=== PATIENT | male | born 1960 | race Caucasian/White ===

== ENCOUNTER → 2017-02-08 | Outpatient (CLI) | payer MEDICARE ==
[~2017-02-08] MED LIST: ASPI-84 PO; ATOR10TA PO; BENZ100C18 PO; CEFD300C3 PO; CLOP75TA PO; DIAZ5TAB49 PO; DIPH25CA79 PO; DOCU-143 PO; ENLP5T PO; FENO145T2 PO; FENO145T20 PO; FISH1CAP15 PO; HYDR-756 PO; LOVA20TA2 PO; MEDROL PO; METH10TA3 PO; MULT-35 PO; OXYC-272 PO; OXYC30TA76 PO; Omnicef; RNT150T PO; WARF7.5T PO; WARF7.5T49 PO; WRF5T PO
== END ==
LOC: PREOP 05:40
PROVIDERS: ATTEND Internal Medicine
DX: Z12.11 Encounter for screening for malignant neoplasm of colon; Z01.818 Encounter for other preprocedural examination

== ENCOUNTER → 2019-02-27 | Outpatient (CLI) | payer MEDICARE ==
[~2019-02-27] MED LIST changes: -FENO145T20 PO; +FENO145T37 PO; +HYDR-4227 PO; -HYDR-756 PO
[2019-02-27 15:43] LABS: ABSOLUTE RETIC # 55 10e9/L (24-90); BASOPHILS % (AUTO) 0 % (0-10); EOSINOPHILS # (AUTO) 0.1 10^3/uL (0.0-0.3); EOSINOPHILS % (AUTO) 1 % (0-10); HEMATOCRIT 46 % (40-54); HEMOGLOBIN 14.9 G/DL (13.3-17.7); LYMPHOCYTES # (AUTO) 2.8 X 10^3 (1.0-4.0); LYMPHOCYTES % (AUTO) 31 % (12-44); MEAN CORPUSCULAR HEMOGLOBIN 30 PG (25-34); MEAN CORPUSCULAR HGB CONC 33 G/DL (32-36); MEAN CORPUSCULAR VOLUME 91 FL (80-99); MEAN PLATELET VOLUME 10.3 FL (7.4-10.4); MONOCYTES # (AUTO) 0.6 X 10^3 (0.0-1.0); MONOCYTES % (AUTO) 6 % (0-12); NEUTROPHILS # (AUTO) 5.6 X 10^3 (1.8-7.8); NEUTROPHILS % (AUTO) 62 % (42-75); PLATELET COUNT 191 10^3/uL (130-400); RED CELL DISTRIBUTION WIDTH 14.5 % (10.0-14.5); RETICULOCYTE % 1.09 % (0.50-2.40); WHITE BLOOD COUNT 9.2 10^3/uL (4.3-11.0)
[2019-02-27 16:33] LABS: BAND NEUTROPHILS 1 %; EOSINOPHILS % (MANUAL) 3 %; LYMPHOCYTES % (MANUAL) 30 %; MONOCYTES % (MANUAL) 6 %; NEUTROPHILS % (MANUAL) 60 %; RBC MORPH NORMAL
== END ==
LOC: LAB 15:28
PROVIDERS: ATTEND Internal Medicine
DX: D72.829 Elevated white blood cell count, unspecified (principal)
CPT/HCPCS: 36415; 85007; 85027; 85045

== ENCOUNTER → 2020-04-15 | Outpatient (CLI) | payer MEDICARE ==
[~2020-04-15] MED LIST changes: +FENO145T26 PO; -FENO145T37 PO; +WARF7.5T3 PO; -WARF7.5T49 PO
[2020-04-15 09:35] LABS: ABSOLUTE RETIC # 52 10e9/uL (24-90); BASOPHILS % (AUTO) 0 % (0-10); EOSINOPHILS # (AUTO) 0.2 10^3/uL (0.0-0.3); EOSINOPHILS % (AUTO) 3 % (0-10); HEMATOCRIT 48 % (40-54); HEMOGLOBIN 15.1 g/dL (13.3-17.7); LYMPHOCYTES # (AUTO) 3.9 10^3/uL (1.0-4.0); LYMPHOCYTES % (AUTO) 43 % (12-44); MEAN CORPUSCULAR HEMOGLOBIN 29 pg (25-34); MEAN CORPUSCULAR HGB CONC 32 g/dL (32-36); MEAN CORPUSCULAR VOLUME 92 fL (80-99); MEAN PLATELET VOLUME 10.6 fL (9.0-12.2); MONOCYTES # (AUTO) 0.6 10^3/uL (0.0-1.0); MONOCYTES % (AUTO) 6 % (0-12); NEUTROPHILS # (AUTO) 4.2 10^3/uL (1.8-7.8); NEUTROPHILS % (AUTO) 47 % (42-75); PLATELET COUNT 206 10^3/uL (130-400); WHITE BLOOD COUNT 8.9 10^3/uL (4.3-11.0)
[2020-04-15 10:21] LABS: BAND NEUTROPHILS 1 %; EOSINOPHILS % (MANUAL) 3 %; LYMPHOCYTES % (MANUAL) 45 %; MONOCYTES % (MANUAL) 5 %; NEUTROPHILS % (MANUAL) 44 %; RBC MORPH NORMAL; REACTIVE LYMPHOCYTES 2 %
== END ==
LOC: LAB 09:04
PROVIDERS: ATTEND Internal Medicine
DX: R79.9 Abnormal finding of blood chemistry, unspecified (principal)
CPT/HCPCS: 36415; 85007; 85027; 85045; 85055

== ENCOUNTER 2020-07-05 21:02 | Emergency (ER) | payer MEDICARE ==
[~2020-07-05] VITALS: Ht 182.9 cm; Wt 118.2 kg
[2020-07-05 21:40] VITALS: BP 149/58
[2020-07-05] MEDS ORDERED: ACETAMINOPHEN 500 MG TAB (TYLENOL) PO ONE (22:00)
[2020-07-05] MEDS ORDERED: IBUPROFEN 800 MG (MOTRIN) TAB PO ONE (22:00)
[2020-07-05 22:12] LABS: BASOPHILS % (AUTO) 0 % (0-10); EOSINOPHILS % (AUTO) 0 % (0-10); HEMATOCRIT 46 % (40-54); HEMOGLOBIN 15.3 g/dL (13.3-17.7); LYMPHOCYTES # (AUTO) 1.9 10^3/uL (1.0-4.0); LYMPHOCYTES % (AUTO) 10 % (12-44); MEAN CORPUSCULAR HEMOGLOBIN 29 pg (25-34); MEAN CORPUSCULAR HGB CONC 33 g/dL (32-36); MEAN CORPUSCULAR VOLUME 89 fL (80-99); MEAN PLATELET VOLUME 10.7 fL (9.0-12.2); MONOCYTES # (AUTO) 1.3 10^3/uL (0.0-1.0); MONOCYTES % (AUTO) 7 % (0-12); NEUTROPHILS # (AUTO) 16.3 10^3/uL (1.8-7.8); NEUTROPHILS % (AUTO) 83 % (42-75); PLATELET COUNT 170 10^3/uL (130-400); WHITE BLOOD COUNT 19.7 10^3/uL (4.3-11.0)
[2020-07-05 22:32] LABS: ALBUMIN 3.7 GM/DL (3.2-4.5); BILIRUBIN,TOTAL 0.8 MG/DL (0.1-1.0); CALCIUM 8.9 MG/DL (8.5-10.1); CREATININE SERUM 1.27 MG/DL (0.60-1.30); POTASSIUM 4.1 MMOL/L (3.6-5.0); TOTAL PROTEIN 7.9 GM/DL (6.4-8.2)
--- NOTE | 2020-07-05 22:34 | ED General ---
General Chief Complaint: Fever-Adult/Adol Stated Complaint: HEADACHE/CHILLS/FEVER/URINE INCONTINENCE Source of Information: Patient (VERY LIMITED AND VERY DIFFICULT HISTORIAN--PT IS BELLIGERENT AND CURSING AND GENERALLY UNCOOPERATIVE FROM ARRIVAL. UNABLE TO OBTAIN ANY PAST MEDICAL HISTORY FROM PT) History of Present Illness Date Seen by Provider: Jul 05, 2020 Time Seen by Provider: 21:40 Initial Comments PT ARRIVES VIA POV FROM HOME--WITH PACK OF CIGARETTES AND A WAREHOUSE COORDINATOR C/O SUBJECTIVE FEVER AND CHILLS C/O URINARY INCONTINENCE SYMPTOMS BEGAN TODAY ALSO C/O "DIAPER RASH" ON BUTTOCKS/GENITAL AREA--IS UNCLEAR HOW LONG THAT HAS BEEN THERE PT WANTING TO LEAVE SOON HE ARRIVES--STATING "THIS IS ALL BULLSHIT--I'M LEAVING" UNABLE TO OBTAIN ANY OTHER INFORMATION FROM PT, HE IS INCREASINGLY BELLIGERENT AND CURSING AND BEING GENERALLY UNCOOPERATIVE WITH ASSESMENT AND INTERVENTIONS REFUSES TO GET UNDRESSED FOR ME TO EXAMINE HIM AND HIS C/O "DIAPER RASH" HE REFUSED TO ATTEMPT TO GIVE URINE SPECIMEN--EXPLAINED THE IMPORTANCE OF TEST TO PT. PT STATES HE NEEDS TO TAKE HIS MEDICATION, BUT REFUSES TO ALLOW MYSELF JUNIOR NET DEVELOPER TO EVEN LOOK AT HIS PILLS, NONE OF WHICH ARE IN A BOTTLE OR LABELED IN ANY WAY. PT DOES NOT KNOW WHAT HIS MEDICATIONS ARE, OR WHY HE TAKES THEM. PT'S BEHAVIOR QUICKLY ESCALATED, AND PT SIGNED OUT AMA REPEATED ATTEMPTS BY MYSELF AND RN TO ENCOURAGE PT TO STAY FOR FURTHER TESTS AND EVALUATION PT ADVISED THAT HE COULD POSSIBLY HAVE COVID-19 AND NEEDED TO BE QUARANTINED FOR 2 WEEKS PCP: DR. MARVIN Allergies and Home Medications Allergies Coded Allergies: chlorpheniramine (Unverified Allergy, Unknown, 12/14/14) pseudoephedrine (Unverified Allergy, Unknown, 12/14/14) Home Medications Aspirin 81 Mg Tablet., 81 MG PO DAILY, (Reported) Atorvastatin Calcium 10 Mg Tablet, 10 MG PO DAILY Prescribed by: WOLFGANG BARKER on 07/15/15 0953 Diazepam 5 Mg Tablet, 5 MG PO TID, (Reported) Diphenhydramine HCl 25 Mg Capsule, 25 MG PO BID, (Reported) Enalapril Maleate 5 Mg Tab, 5 MG PO DAILY, (Reported) Fenofibrate Nanocrystallized 145 Mg Tablet, 145 MG PO DAILY, (Reported) Fish Oil/Dha/Epa 1 Each Capsule, 1,200 MG PO TID, (Reported) Multivitamin 1 Each Tablet, 1 EACH PO DAILY, (Reported) Oxycodone Hcl 30 Mg Tab.sr.12h, 30 MG PO BID, (Reported) Oxycodone Hcl/Acetaminophen 1 Tab Tablet, 1 TAB PO QID, (Reported) Ranitidine Hcl 150 Mg Tablet, 150 MG PO BID, (Reported) Warfarin Sod 5 Mg Tab, 5 MG PO , (Reported) MONDAY,MONDAY Warfarin Sodium 7.5 Mg Tablet, 7.5 MG PO MOWETHRFRISUN, (Reported) Monday, Monday, , Monday,MONDAY Patient Home Medication List Home Medication List Reviewed: Yes Review of Systems Review of Systems Constitutional: chills, fever, other (VERY LIMITED) Genitourinary: see HPI Past Raphtrc-Hspfea-Fsakjy Hx Patient Social History Smoking Status: Current Everyday Smoker (2 PPD) Type Used: Cigarettes Recent Hopitalizations: No Immunizations Up To Date Tetanus Booster (TDap): Unknown Seasonal Allergies Seasonal Allergies: No Past Medical History Currently Using CPAP: No Currently Using BIPAP: No Neurological: Yes (EXPRESSIVE APHASIA) Stroke Reproductive Disorders: No Adverse Reaction/Blood Tranf: No Family Medical History Cardiovascular disease G8 BROTHER G8 BROTHER G8 BROTHER FH: cancer 19 FATHER 19 MOTHER (UTERINE) FH: lung cancer GRANDFATHER No Pertinent Family Hx Physical Exam Vital Signs Vital Signs - First Documented 07/05/20 21:40 Temp 38.9 Pulse 129 Resp 24 B/P (MAP) 149/58 (88) Pulse Ox 96 O2 Delivery Room Air O2 Flow Rate 2.00 Capillary Refill : Height, Weight, BMI Height: 6'2.00" Weight: 251lbs. 2.0oz. [id number]; 32.2 BMI Method:Stated General Appearance: No Apparent Distress, WD/WN, Anxious, Other (VERY BELLIGERENT, CURSING, CONSTANT MOVEMENTS, PT REEKS OF CIGARETTS--DESPITE MY WEARING N95 MASK + SUGICAL MASK) Respiratory: Normal Breath Sounds, No Accessory Muscle Use Cardiovascular: No Murmur, Tachycardia Neurologic/Psychiatric: Alert, No Motor/Sensory Deficits, Other (SOME EXPRESSIVE APHASIA BUT SPEECHI ITSELF IS CLEAR. BEHAVIOR NOTED ABOVE) Skin: Other (VERY WARM) Focused Exam Lactate Level 07/05/20 21:50: Lactic Acid Level 1.60 Lactic Acid Level Laboratory Tests Test 07/05/20 21:50 Lactic Acid Level 1.60 MMOL/L (0.50-2.00) Progress/Results/Core Measures Suspected Sepsis SIRS Temperature: Pulse: Respiratory Rate: Laboratory Tests 07/05/20 21:50: White Blood Count 19.7H Blood Pressure / Mean: 07/05/20 21:50: Lactic Acid Level 1.60 Laboratory Tests 07/05/20 21:50: Creatinine 1.27, INR Comment 2.1H, Platelet Count 170, Total Bilirubin 0.8 Results/Orders Lab Results Laboratory Tests Test 07/05/20 21:50 07/05/20 22:15 Range/Units White Blood Count 19.7 H 4.3-11.0 10^3/uL Red Blood Count 5.20 4.30-5.52 10^6/uL Hemoglobin 15.3 13.3-17.7 g/dL Hematocrit 46 40-54 % Mean Corpuscular Volume 89 80-99 fL Mean Corpuscular Hemoglobin 29 25-34 pg Mean Corpuscular Hemoglobin Concent 33 32-36 g/dL Red Cell Distribution Width 13.6 10.0-14.5 % Platelet Count 170 130-400 10^3/uL Mean Platelet Volume 10.7 9.0-12.2 fL Immature Granulocyte % (Auto) 1 % Neutrophils (%) (Auto) 83 H 42-75 % Lymphocytes (%) (Auto) 10 L 12-44 % Monocytes (%) (Auto) 7 0-12 % Eosinophils (%) (Auto) 0 0-10 % Basophils (%) (Auto) 0 0-10 % Neutrophils # (Auto) 16.3 H 1.8-7.8 10^3/uL Lymphocytes # (Auto) 1.9 1.0-4.0 10^3/uL Monocytes # (Auto) 1.3 H 0.0-1.0 10^3/uL Eosinophils # (Auto) 0.0 0.0-0.3 10^3/uL Basophils # (Auto) 0.0 0.0-0.1 10^3/uL Immature Granulocyte # (Auto) 0.1 0.0-0.1 10^3/uL Neutrophils % (Manual) 76 % Lymphocytes % (Manual) 10 % Monocytes % (Manual) 8 % Band Neutrophils 6 % Blood Morphology Comment NORMAL Prothrombin Time 24.1 H 12.2-14.7 SEC INR Comment 2.1 H 0.8-1.4 Activated Partial Thromboplast Time 51 H 24-35 SEC D-Dimer 1.57 H 0.00-0.49 UG/ML Sodium Level 132 L 135-145 MMOL/L Potassium Level 4.1 3.6-5.0 MMOL/L Chloride Level 98 98-107 MMOL/L Carbon Dioxide Level 21 21-32 MMOL/L Anion Gap 13 5-14 MMOL/L Blood Urea Nitrogen 12 7-18 MG/DL Creatinine 1.27 0.60-1.30 MG/DL Estimat Glomerular Filtration Rate 57 BUN/Creatinine Ratio 9 Glucose Level 115 H 70-105 MG/DL Lactic Acid Level 1.60 0.50-2.00 MMOL/L Calcium Level 8.9 8.5-10.1 MG/DL Corrected Calcium 9.1 8.5-10.1 MG/DL Magnesium Level 1.1 *L 1.6-2.4 MG/DL Total Bilirubin 0.8 0.1-1.0 MG/DL Aspartate Amino Transf (AST/SGOT) 17 5-34 U/L Alanine Aminotransferase (ALT/SGPT) 13 0-55 U/L Alkaline Phosphatase 77 40-136 U/L Lactate Dehydrogenase 208 125-220 U/L C-Reactive Protein High Sensitivity 14.18 H 0.00-0.50 MG/DL B-Type Natriuretic Peptide 19.4 <100.0 PG/ML Total Protein 7.9 6.4-8.2 GM/DL Albumin 3.7 3.2-4.5 GM/DL Procalcitonin 1.12 H <0.10 NG/ML Coronavirus 2019 (VEENA) Negative Negative Micro Results Microbiology 07/05/20 Influenza Types A,B Antigen (GUSTAVO) - Final, Complete My Orders Orders - SARATH SANTANA DO Ed Iv/Invasive Line Start (07/05/20 21:40) Ekg Tracing (07/05/20 21:40) O2 (07/05/20 21:40) Monitor-Rhythm Ecg Trace Only (07/05/20 21:40) Cbc With Automated Diff (07/05/20 21:40) Comprehensive Metabolic Panel (07/05/20 21:40) Fibrin Degradation Products (07/05/20 21:40) Procalcitonin (Pct) (07/05/20 21:40) Hs C Reactive Protein (07/05/20 21:40) Erythrocyte Sedimentation Rate (07/05/20 21:40) LDH (07/05/20 21:40) Blood Culture (07/05/20 21:40) Influenza A And B Antigens (07/05/20 21:40) Chest 1 View, Ap/Pa Only (07/05/20 21:40) Coronavirus Sars-Cov-2 So 2018 (07/05/20 21:40) Covid 19 Inhouse Test (07/05/20 21:40) BNP (07/05/20 21:40) Lactic Acid Analyzer (07/05/20 21:40) Magnesium (07/05/20 21:40) Protime With Inr (07/05/20 21:40) Partial Thromboplastin Time (07/05/20 21:40) Acetaminophen Tablet (Tylenol Tablet) (07/05/20 22:00) Ibuprofen Tablet (Motrin Tablet) (07/05/20 22:00) Manual Differential (07/05/20 21:50) Medications Given in ED Current Medications Medications Dose Ordered Sig/Adrián Route Start Time Stop Time Status Last Admin Dose Admin Acetaminophen 1,000 mg ONCE ONCE PO 07/05/20 22:00 07/05/20 22:01 DC 07/05/20 22:06 1,000 MG Ibuprofen 800 mg ONCE ONCE PO 07/05/20 22:00 07/05/20 22:01 DC 07/05/20 22:06 800 MG Vital Signs/I&O 07/05/20 07/05/20 21:40 21:40 Temp 38.9 Pulse 129 Resp 24 B/P (MAP) 149/58 (88) Pulse Ox 96 96 O2 Delivery Room Air Nasal Cannula O2 Flow Rate 2.00 2.00 Capillary Refill : Progress Note : Progress Note PLACED IN ISOLATION ROOM PPE WORN AT ALL TIMES COVID-19 TESTING PERFORMED PT ADVISED OF NEED FOR QUARANTINE PT WITH INCREASING BELLIGERENCE, CURSING, UNCOOPERATIVENESS, AND AGITATION--REPEATS "THIS IS BULLSHIT" AND REPEATEDLY STATES "I'M JUST GONNA LEAVE--THIS IS FUCKING BULL SHIT" AND REFUSING ALL OTHER TESTS AND REFUSED ADMIT AND SIGNED OUT AMA ECG Initial ECG Impression Date: Jul 05, 2020 Initial ECG Impression Time: 22:12 Initial ECG Rate: 128 Initial ECG Rhythm: S.Tach Initial ECG Impression: Nonspecific Changes Departure Impression Primary Impression: Left against medical advice Disposition: 07 AGAINST MEDICAL ADVICE Condition: Against Medical Advice Departure-Patient Inst. Referrals: MING MARVIN MD (PCP/Family) Primary Care Physician SARATH SANTANA DO Jul 05, 2020 22:34
[2020-07-05 22:46] LABS: FIBRIN DEGRADATION PRODUCTS 1.57 UG/ML (0.00-0.49); INR 2.1 (0.8-1.4); PROTHROMBIN TIME PATIENT 24.1 SEC (12.2-14.7)
[2020-07-05 22:51] LABS: BAND NEUTROPHILS 6 %; LYMPHOCYTES % (MANUAL) 10 %; MONOCYTES % (MANUAL) 8 %; NEUTROPHILS % (MANUAL) 76 %; RBC MORPH NORMAL
[2020-07-05 22:53] LABS: MAGNESIUM 1.1 MG/DL (1.6-2.4)
--- NOTE | 2020-07-06 06:20 | Diagnostic Imaging Report ---
INDICATION: Fever, cough, and congestion. Patient is on COVID restrictions. COMPARISON STUDY: Chest from 07/15/2015. FINDINGS: Frontal view of the chest again demonstrates a hiatal hernia. Heart size is upper normal. Mild central congestion is present. There are no effusions. IMPRESSION: Heart size is upper normal with mild central congestion. There is a small hiatal hernia. Dictated by: Dictated on workstation # [id number]
[2020-07-06 15:37] LABS: ERYTHROCYTE SEDIMENTATION RATE 4 MM/HR (0-30)
== END 2020-07-05 22:20 | disposition left against medical advice (07) ==
LOC: EDUNIT# 21:02 → ER 21:05
DX: R51.9 Headache, unspecified (principal); R50.9 Fever, unspecified; R32 Unspecified urinary incontinence; L22 Diaper dermatitis; R00.0 Tachycardia, unspecified; R45.1 Restlessness and agitation; F41.9 Anxiety disorder, unspecified; F17.210 Nicotine dependence, cigarettes, uncomplicated; Z20.822 Contact with and (suspected) exposure to COVID-19; Z86.73 Personal history of transient ischemic attack (TIA), and cerebral infarction without residual deficits; Z79.01 Long term (current) use of anticoagulants; Z79.82 Long term (current) use of aspirin; Z88.8 Allergy status to other drugs, medicaments and biological substances; Z80.1 Family history of malignant neoplasm of trachea, bronchus and lung
CPT/HCPCS: 36415; 71045; 80053; 83605; 83615; 83735; 83880; 84145; 85007; 85027; 85379; 85610; 85652; 85730; 86141; 87040; 87635; 87804; 93005; 93041

== ENCOUNTER 2020-07-07 09:50 | Inpatient (IN) | payer MEDICARE ==
[~2020-07-07] VITALS: Ht 183 cm; Wt 129.2 kg
[2020-07-07] MEDS ORDERED: ACETAMINOPHEN 500 MG TAB (TYLENOL) ONE (10:12)
[2020-07-07] MEDS ORDERED: NS IV 1000 ML 1,000 ML IV SCH ×2 (10:30→12:00)
[2020-07-07 10:42] LABS: BASOPHILS % (AUTO) 0 % (0-10); EOSINOPHILS # (AUTO) 0.1 10^3/uL (0.0-0.3); EOSINOPHILS % (AUTO) 1 % (0-10); HEMATOCRIT 44 % (40-54); HEMOGLOBIN 14.7 g/dL (13.3-17.7); LYMPHOCYTES # (AUTO) 1.1 10^3/uL (1.0-4.0); LYMPHOCYTES % (AUTO) 10 % (12-44); MEAN CORPUSCULAR HEMOGLOBIN 30 pg (25-34); MEAN CORPUSCULAR HGB CONC 33 g/dL (32-36); MEAN CORPUSCULAR VOLUME 89 fL (80-99); MEAN PLATELET VOLUME 11.2 fL (9.0-12.2); MONOCYTES # (AUTO) 0.7 10^3/uL (0.0-1.0); MONOCYTES % (AUTO) 6 % (0-12); NEUTROPHILS # (AUTO) 9.4 10^3/uL (1.8-7.8); NEUTROPHILS % (AUTO) 83 % (42-75); PLATELET COUNT 145 10^3/uL (130-400); WHITE BLOOD COUNT 11.3 10^3/uL (4.3-11.0)
[2020-07-07 10:48] LABS: INR 3.2 (0.8-1.4)
[2020-07-07 10:52] LABS: ALBUMIN 3.5 GM/DL (3.2-4.5); POTASSIUM 4.3 MMOL/L (3.6-5.0)
[2020-07-07 10:53] LABS: CALCIUM 9.2 MG/DL (8.5-10.1)
[2020-07-07 10:55] LABS: TOTAL PROTEIN 8.1 GM/DL (6.4-8.2)
[2020-07-07 10:58] LABS: CREATININE SERUM 1.23 MG/DL (0.60-1.30)
[2020-07-07 11:01] LABS: MAGNESIUM 1.5 MG/DL (1.6-2.4)
--- NOTE | 2020-07-07 11:06 | ED General ---
General Chief Complaint: Fever-Adult/Adol Stated Complaint: FEVER,CHILLS,BODY ACHES,LOZANO Nursing Triage Note: PT AMB TO ROOM 5 PT CO OF FEVER AND URINARY INC FOR APPROX 4 DAYS Nursing Sepsis Screen: Possible Severe Sepsis Risk Source of Information: Patient, Old Records Exam Limitations: Other History of Present Illness Date Seen by Provider: Jul 07, 2020 Time Seen by Provider: 09:54 Initial Comments This is a 60-year-old gentleman presents to the emergency room with several days of fever, urinary incontinence, and dysuria. He presented to the ER on July 05 but left AGAINST MEDICAL ADVICE because he was very agitated at that time. He does not know why he was feeling so agitated. At that time he had a magnesium of 1.1 and significant leukocytosis. He had a negative rapid Covid and PCR Covid test on the . Patient has some communication difficulties, especially with numbers, due to prior stroke. He is febrile and diaphoretic. He is on warfarin therapy which he states is because of his stroke. He denies history of A. fib. Allergies and Home Medications Allergies Coded Allergies: chlorpheniramine (Unverified Allergy, Unknown, 12/14/14) pseudoephedrine (Unverified Allergy, Unknown, 12/14/14) Home Medications Aspirin 81 Mg Tablet., 81 MG PO DAILY, (Reported) Atorvastatin Calcium 10 Mg Tablet, 10 MG PO DAILY Prescribed by: WOLFGANG BARKER on 07/15/15 0953 Diazepam 5 Mg Tablet, 5 MG PO TID, (Reported) Enalapril Maleate 5 Mg Tab, 5 MG PO DAILY, (Reported) Fish Oil/Dha/Epa 1 Each Capsule, 1,200 MG PO TID, (Reported) Multivitamin 1 Each Tablet, 1 EACH PO DAILY, (Reported) Omeprazole 40 Mg Capsule., 40 MG PO DAILY, (Reported) Oxycodone Hcl 30 Mg Tab.sr.12h, 30 MG PO BID, (Reported) Oxycodone Hcl/Acetaminophen 1 Tab Tablet, 1 TAB PO QID, (Reported) Warfarin Sod 5 Mg Tab, 5 MG PO , (Reported) MONDAY,MONDAY Warfarin Sodium 7.5 Mg Tablet, 7.5 MG PO MOWETHRFRISUN, (Reported) Monday, Monday, , Monday Patient Home Medication List Home Medication List Reviewed: Yes Review of Systems Review of Systems Constitutional: see HPI, fever EENTM: no symptoms reported Respiratory: no symptoms reported Cardiovascular: no symptoms reported Gastrointestinal: no symptoms reported Genitourinary: see HPI Musculoskeletal: no symptoms reported Skin: no symptoms reported Psychiatric/Neurological: See HPI, Other (Agitation on prior visit) Hematologic/Lymphatic: No Symptoms Reported Immunological/Allergic: see HPI Past Wznrlfd-Jtgkrb-Rvcdav Hx Past Med/Social Hx: Reviewed Nursing Past Med/Soc Hx Patient Social History Alcohol Use: Denies Use Smoking Status: Current Everyday Smoker Type Used: Cigarettes Recent Infectious Disease Expo: No Recent Hopitalizations: No Immunizations Up To Date Tetanus Booster (TDap): Unknown Seasonal Allergies Seasonal Allergies: No Past Medical History Surgeries: Yes (back, knees, ) Orthopedic Respiratory: No Currently Using CPAP: No Currently Using BIPAP: No Cardiac: Yes Neurological: Yes (EXPRESSIVE APHASIA) Stroke Reproductive Disorders: No Gastrointestinal: No Musculoskeletal: Yes (SPINE SURGERY) Endocrine: No Cancer: No Psychosocial: No Integumentary: No Blood Disorders: No Adverse Reaction/Blood Tranf: No Family Medical History Reviewed Nursing Family Hx Cardiovascular disease G8 BROTHER G8 BROTHER G8 BROTHER FH: cancer 19 FATHER 19 MOTHER (UTERINE) FH: lung cancer GRANDFATHER No Pertinent Family Hx Physical Exam-Suspected Sepsis Physical Exam Vital Signs Vital Signs - First Documented 07/07/20 10:00 Temp 38.6 Pulse 117 Resp 16 B/P (MAP) 116/86 (96) Pulse Ox 93 O2 Delivery Room Air Capillary Refill : Less Than 3 Seconds Blood Pressure Mean: 96 Height, Weight, BMI Height: 6'2.00" Weight: 251lbs. 2.0oz. 113.592013nl; 33.00 BMI Method:Stated General Appearance: No Apparent Distress, WD/WN, Other (Diaphoretic) HEENT: PERRL/EOMI, TMs Normal, Normal ENT Inspection, Pharynx Normal, Other (Leukoplakia on the tongue) Neck: Normal Inspection Respiratory: No Accessory Muscle Use, No Respiratory Distress, Wheezing Cardiovascular: Regular Rate, Rhythm, No Edema, No Murmur Gastrointestinal: Normal Bowel Sounds, Non Tender, Soft Extremity: Normal Inspection, No Pedal Edema Neurologic/Psychiatric: Alert, Oriented x3, No Motor/Sensory Deficits, Normal Mood/Affect, Other (Expressive aphasia, especially with numbers) Skin: normal color, diaphoresis Focused Exam Sepsis Stage: Septic Shock Possible Source: Genitouriary Lactate Level 07/07/20 10:10: Lactic Acid Level 1.10 Time of Focused Exam: 15:25 Respiratory: Lungs Clear, Normal Breath Sounds, No Accessory Muscle Use Cardiovascular: Regular Rate, Rhythm, No Edema, No Murmur, Normal Peripheral Pulses Capillary Refill: Less Than 3 Seconds Peripheral Pulses: 1+ Radial Pulses (R) Skin: normal color, warm/dry Lactic Acid Level Within 3hrs of presentation: Admin fluids, Admin ABX, Blood cultures prior to ABX's, Focus exam, Lactate level Progress/Results/Core Measures Suspected Sepsis Recent Fever Within 48 Hours: Yes Infection Criteria Present: Suspected New Infection New/Unexplained Altered Menta: No Sepsis Screen: Possible Severe Sepsis Risk SIRS Temperature: Pulse: 117 Respiratory Rate: 16 Laboratory Tests 07/07/20 10:10: White Blood Count 11.3H Blood Pressure 116 /86 Mean: 96 07/07/20 10:10: Lactic Acid Level 1.10 Laboratory Tests 07/07/20 10:10: Creatinine 1.23, INR Comment 3.2H, Platelet Count 145, Total Bilirubin 1.0 Results/Orders Lab Results Laboratory Tests Test 07/07/20 10:10 07/07/20 10:15 07/07/20 13:47 Range/Units White Blood Count 11.3 H 4.3-11.0 10^3/uL Red Blood Count 4.98 4.30-5.52 10^6/uL Hemoglobin 14.7 13.3-17.7 g/dL Hematocrit 44 40-54 % Mean Corpuscular Volume 89 80-99 fL Mean Corpuscular Hemoglobin 30 25-34 pg Mean Corpuscular Hemoglobin Concent 33 32-36 g/dL Red Cell Distribution Width 13.9 10.0-14.5 % Platelet Count 145 130-400 10^3/uL Mean Platelet Volume 11.2 9.0-12.2 fL Immature Granulocyte % (Auto) 0 % Neutrophils (%) (Auto) 83 H 42-75 % Lymphocytes (%) (Auto) 10 L 12-44 % Monocytes (%) (Auto) 6 0-12 % Eosinophils (%) (Auto) 1 0-10 % Basophils (%) (Auto) 0 0-10 % Neutrophils # (Auto) 9.4 H 1.8-7.8 10^3/uL Lymphocytes # (Auto) 1.1 1.0-4.0 10^3/uL Monocytes # (Auto) 0.7 0.0-1.0 10^3/uL Eosinophils # (Auto) 0.1 0.0-0.3 10^3/uL Basophils # (Auto) 0.0 0.0-0.1 10^3/uL Immature Granulocyte # (Auto) 0.1 0.0-0.1 10^3/uL Prothrombin Time 33.0 H 12.2-14.7 SEC INR Comment 3.2 H 0.8-1.4 Activated Partial Thromboplast Time 75 H 24-35 SEC Sodium Level 133 L 135-145 MMOL/L Potassium Level 4.3 3.6-5.0 MMOL/L Chloride Level 98 98-107 MMOL/L Carbon Dioxide Level 25 21-32 MMOL/L Anion Gap 10 5-14 MMOL/L Blood Urea Nitrogen 20 H 7-18 MG/DL Creatinine 1.23 0.60-1.30 MG/DL Estimat Glomerular Filtration Rate 60 BUN/Creatinine Ratio 16 Glucose Level 99 70-105 MG/DL Lactic Acid Level 1.10 0.50-2.00 MMOL/L Calcium Level 9.2 8.5-10.1 MG/DL Corrected Calcium 9.6 8.5-10.1 MG/DL Magnesium Level 1.5 L 1.6-2.4 MG/DL Total Bilirubin 1.0 0.1-1.0 MG/DL Aspartate Amino Transf (AST/SGOT) 64 H 5-34 U/L Alanine Aminotransferase (ALT/SGPT) 64 H 0-55 U/L Alkaline Phosphatase 90 40-136 U/L Total Creatine Kinase 89 30-200 U/L C-Reactive Protein High Sensitivity 25.31 H 0.00-0.50 MG/DL Total Protein 8.1 6.4-8.2 GM/DL Albumin 3.5 3.2-4.5 GM/DL Procalcitonin 1.29 H <0.10 NG/ML Coronavirus 2019 (VEENA) Negative Negative Urine Color ORANGE Urine Clarity SL CLOUDY Urine pH 5.0 5-9 Urine Specific Chazy 1.025 H 1.016-1.022 Urine Protein 3+ H NEGATIVE Urine Glucose (UA) NEGATIVE NEGATIVE Urine Ketones TRACE H NEGATIVE Urine Nitrite POSITIVE H NEGATIVE Urine Bilirubin 2+ H NEGATIVE Urine Urobilinogen 2.0 < = 1.0 MG/DL Urine Leukocyte Esterase 2+ H NEGATIVE Urine RBC (Auto) 3+ H NEGATIVE Urine RBC >100 H /HPF Urine WBC >100 H /HPF Urine Squamous Epithelial Cells 2-5 /HPF Urine Crystals NONE /LPF Urine Bacteria MODERATE H /HPF Urine Casts PRESENT /LPF Urine Hyaline Casts 2-5 H /LPF Urine Mucus NEGATIVE /LPF Urine Culture Indicated CULTURE PENDING Micro Results Microbiology 07/07/20 Influenza Types A,B Antigen (GUSTAVO) - Final, Complete My Orders Orders - ZEV ARTEAGA MD Influenza A And B Antigens (07/07/20 09:54) Covid 19 Inhouse Test (07/07/20 09:54) Acetaminophen Tablet (Tylenol Tablet) (07/07/20 10:12) Cbc With Automated Diff (07/07/20 10:28) Comprehensive Metabolic Panel (07/07/20 10:28) Blood Culture (07/07/20 10:28) Sputum Culture (07/07/20 10:28) Urinalysis (07/07/20 10:28) Urine Culture (07/07/20 10:28) Protime With Inr (07/07/20 10:28) Partial Thromboplastin Time (07/07/20 10:28) Chest 1 View, Ap/Pa Only (07/07/20 10:28) Ed Iv/Invasive Line Start (07/07/20 10:28) Ed Iv/Invasive Line Start (07/07/20 10:28) Vital Signs Adult Sepsis Patie Q15M (07/07/20 10:28) O2 (07/07/20 10:28) Remove Rings In Anticipation O (07/07/20 10:28) Lactic Acid Analyzer (07/07/20 10:28) Ns Iv 1000 Ml (Sodium Chloride 0.9%) (07/07/20 10:30) Magnesium (07/07/20 10:30) Bladder Scan (07/07/20 10:59) Magnesium 1 Gm/100 Ml Ivpb (Magnesium Hu (07/07/20 12:00) Ns Iv 1000 Ml (Sodium Chloride 0.9%) (07/07/20 12:00) Hs C Reactive Protein (07/07/20 12:08) Creatine Kinase (07/07/20 13:48) Lactated Ringers (Lr 1000 Ml Iv Solution (07/07/20 14:00) Ceftriaxone For Iv Use (Rocephin For I (07/07/20 15:30) Medications Given in ED Current Medications Medications Dose Ordered Sig/Adrián Route Start Time Stop Time Status Last Admin Dose Admin Acetaminophen 500 mg STK-MED ONCE .ROUTE 07/07/20 10:12 07/07/20 10:18 DC 07/07/20 10:20 1,000 MG Ceftriaxone Sodium 1000 mg/ Sterile Water 10 ml @ 200 mls/hr ONCE ONCE IV 07/07/20 15:30 07/07/20 15:32 DC 07/07/20 16:04 200 MLS/HR Lactated Ringer's 1,000 ml @ 0 mls/hr Q0M ONCE IV 07/07/20 14:00 07/07/20 14:01 DC 07/07/20 13:59 1,000 MLS/HR Magnesium Sulfate/ Dextrose 100 ml @ 100 mls/hr ONCE ONCE IV 07/07/20 12:00 07/07/20 12:59 DC 07/07/20 12:11 100 MLS/HR Vital Signs/I&O 07/07/20 07/07/20 07/07/20 07/07/20 10:00 16:39 17:00 17:11 Temp 38.6 Pulse 117 62 100 Resp 16 16 25 B/P (MAP) 116/86 (96) 106/79 (96) 121/53 (75) Pulse Ox 93 95 95 O2 Delivery Room Air Room Air Room Air 07/07/20 07/07/20 17:12 18:00 Pulse 86 64 Resp 13 Pulse Ox 91 O2 Delivery Room Air Capillary Refill : Less Than 3 Seconds Blood Pressure Mean: 96 Progress Note #1: Time: 11:09 Progress Note Patient was seen and examined. Septic work-up is in progress. Patient had 2 - Covid tests on July 05 and his rapid is negative today. We will take him out of PUI precautions. Tylenol was administered and IV fluids are infusing. Progress Note #2: Time: 15:44 Progress Note Patient required 3 L of IV fluid to resolve his intermittent hypotension. His hypotension may represent simple hypovolemia or may represent septic shock. Lactic acid was normal. Once source of infection was identified with urinalysis (which was delayed due to his inability to urinate), Rocephin was ordered for initial antibiotic therapy. Patient feels much better and is now normotensive after 3 L of fluid. He was also given a gram of magnesium by IV route. Early in the ER visit he had a bladder scan which revealed no urine in the bladder. Diagnostic Imaging Diagonstic Imaging: Xray Plain Films/CT/US/NM/MRI: chest Comments NAME: KD DELGADO [facility] REC#: [id number] PT STATUS: REG ER : 1960 PHYSICIAN: ZEV ARTEAGA MD ADMIT DATE: 07/07/20/ER Signed Date of Exam:07/07/20 CHEST 1 VIEW, AP/PA ONLY Indication: Fever and sepsis Frontal chest obtained at 1057 a.m. is compared to 07/05/2020 Heart is borderline in size. There is mild central vascular prominence. There is no focal infiltrate or pneumothorax or pleural fluid. There is a small hiatal hernia. Impression: Borderline heart size with mild central vascular prominence. Chronic appearing increased interstitial markings. No consolidation or pneumothorax or pleural fluid. Dictated by: Dictated on workstation # [id number] Dict: 07/07/20 1101 Trans: 07/07/20 1241 [facility] [id number] Interpreted by: INDIA PATHAK MD Electronically signed by: INDIA PATHAK MD 07/07/20 1241 Departure Communication (Admissions) Time/Spoke to Admitting Phy: 15:20 Dr. Toussaint Impression Primary Impression: Septic shock Additional Impressions: Urinary tract infection Qualified Codes: N39.0 - Urinary tract infection, site not specified; R31.9 - Hematuria, unspecified Hematuria Qualified Codes: R31.0 - Gross hematuria Hypovolemia Hypomagnesemia Disposition: ADMITTED INPATIENT Condition: Improved Admissions Decision to Admit Reason: Admit from ER (General) Decision to Admit/Date: Jul 07, 2020 Time/Decision to Admit Time: 10:00 Departure-Patient Inst. Referrals: MING MARVIN MD (PCP/Family) Primary Care Physician ZEV ARTEAGA MD Jul 07, 2020 11:06
--- NOTE | 2020-07-07 11:16 | Diagnostic Imaging Report ---
Indication: Fever and sepsis Frontal chest obtained at 1057 a.m. is compared to 07/05/2020 Heart is borderline in size. There is mild central vascular prominence. There is no focal infiltrate or pneumothorax or pleural fluid. There is a small hiatal hernia. Impression: Borderline heart size with mild central vascular prominence. Chronic appearing increased interstitial markings. No consolidation or pneumothorax or pleural fluid. Dictated by: Dictated on workstation # [id number]
[2020-07-07] MEDS ORDERED: MAGNESIUM 1 GM/100 ML IVPB 100 ML IV ONE (12:00)
[2020-07-07 13:54] LABS: CLARITY,URINE SL CLOUDY; COLOR,URINE ORANGE; GLUCOSE, URINE (UA) NEGATIVE (NEGATIVE); KETONES,URINE TRACE (NEGATIVE); LEUKOCYTE ESTERASE ,URINE 2+ (NEGATIVE); NITRITE,URINE POSITIVE (NEGATIVE); PROTEIN,URINE 3+ (NEGATIVE)
[2020-07-07] MEDS ORDERED: LACTATED RINGERS 1,000 ML IV ONE ×2 (14:00→17:02)
[2020-07-07 14:05] LABS: BACTERIA,URINE MODERATE /HPF; BILIRUBIN,URINE 2+ (NEGATIVE); RBC,URINE >100 /HPF; WBC,URINE >100 /HPF
[2020-07-07] MEDS ORDERED: cefTRIAXone FOR IV USE 1,000 MG in WATER (STERILE) FOR INJECTION 10 ML IV ONE (15:30)
[2020-07-07] MEDS: LACTATED RINGERS 1,000 ML IV SCH ×2 (17:00→21:11)
[2020-07-07 17:11] VITALS: BP 121/53
[2020-07-07] MEDS ORDERED: OMEP40CA27 PO (17:15)
[2020-07-07] MEDS ORDERED: ACETAMINOPHEN 500 MG TAB (TYLENOL) PO PRN (17:45)
[2020-07-07] MEDS ORDERED: ONDANSETRON 4 MG/2 ML (SDV) Z0FRAN IV PRN (17:45)
[2020-07-07] MEDS ORDERED: EPINEPHrine 1 MG INJECTION 4 MG in NS (IVPB) 248 ML IV SCH (17:45)
[2020-07-07] MEDS ORDERED: CATHETER FLUSH 10 ML SYR IV PRN (17:45)
[2020-07-07] MEDS ORDERED: warFARin 5 MG (COUMADIN) TAB PO SCH (18:00)
[2020-07-07] MEDS ORDERED: cefTRIAXone 1,000 MG/SWFI 10 ML IV PUSH IV NR ×2 (18:15)
[2020-07-07 19:00] VITALS: BP 118/72
[2020-07-07] MEDS: VASOPRESSIN INJECTION 20 UNIT in NS (IVPB) 100 ML IV SCH (19:25)
[2020-07-07] MEDS: NOREPINEPHRINE 4 MG/250 ML 250 ML IV SCH ×2 (19:25→22:38)
[2020-07-07] MEDS ORDERED: MELATONIN 3 MG TABLET PO PRN (20:30)
[2020-07-07] MEDS ORDERED: LOPERAMIDE 2 MG (IMODIUM) TABLET PO PRN (20:30)
[2020-07-07] MEDS ORDERED: CALCIUM CARBONATE 500 MG (TUMS) TAB.CHEW PO PRN (20:30)
[2020-07-07] MEDS ORDERED: LACTULOSE SYRUP 10GM/15ML (ENULOSE) 30ML UDC PO PRN (20:30)
[2020-07-07] MEDS ORDERED: diphenhydrAMINE 25 MG TAB (BENADRYL) PO PRN (20:30)
[2020-07-07] MEDS ORDERED: oxyCODONE/APAP 10/325MG (PERCOCET 10) TABLET PO ONE (20:39)
[2020-07-07] MEDS ORDERED: SENNA W/DOCUSATE (SENOKOT S) TABLET ONE (20:39)
[2020-07-07] MEDS ORDERED: polyethylene glycoL POWDER 17 GM (MIRALAX) PACK ONE (20:39)
[2020-07-07] MEDS ORDERED: DIAZEPAM 5 MG (VALIUM) TABLET ONE (20:46)
[2020-07-07] MEDS ORDERED: oxyCODONE/APAP 10/325MG (PERCOCET 10) TABLET PO SCH (21:00)
[2020-07-07] MEDS ORDERED: DIAZEPAM 5 MG (VALIUM) TABLET PO SCH (21:00)
[2020-07-07] MEDS: polyethylene glycoL POWDER 17 GM (MIRALAX) PACK PO SCH (21:10)
[2020-07-07] MEDS: SENNA W/DOCUSATE (SENOKOT S) TABLET PO SCH (21:11)
[2020-07-07] MEDS ORDERED: oxyCODONE ER 15 MG (oxyCONTIN CR) TAB PO SCH (21:36)
[2020-07-07 22:07] VITALS: BP 123/93
[2020-07-07 23:00] VITALS: BP 123/93
[2020-07-08] VITALS (12 sets, daily range): BP systolic 94–149; BP diastolic 73–86
[2020-07-08] MEDS: LACTATED RINGERS 1,000 ML IV SCH ×2 (01:32→09:14)
[2020-07-08] MEDS: VASOPRESSIN INJECTION 20 UNIT in NS (IVPB) 100 ML IV SCH (02:10)
[2020-07-08 03:17] LABS: EOSINOPHILS # (AUTO) 0.1 10^3/uL (0.0-0.3); EOSINOPHILS % (AUTO) 2 % (0-10); MEAN CORPUSCULAR VOLUME 91 fL (80-99)
[2020-07-08 03:18] LABS: BASOPHILS % (AUTO) 0 % (0-10); HEMATOCRIT 37 % (40-54); HEMOGLOBIN 11.9 g/dL (13.3-17.7); LYMPHOCYTES # (AUTO) 1.4 10^3/uL (1.0-4.0); LYMPHOCYTES % (AUTO) 24 % (12-44); MEAN CORPUSCULAR HEMOGLOBIN 30 pg (25-34); MEAN CORPUSCULAR HGB CONC 32 g/dL (32-36); MEAN PLATELET VOLUME 11.2 fL (9.0-12.2); MONOCYTES # (AUTO) 0.7 10^3/uL (0.0-1.0); MONOCYTES % (AUTO) 11 % (0-12); NEUTROPHILS # (AUTO) 3.6 10^3/uL (1.8-7.8); NEUTROPHILS % (AUTO) 62 % (42-75); PLATELET COUNT 118 10^3/uL (130-400); WHITE BLOOD COUNT 5.8 10^3/uL (4.3-11.0)
[2020-07-08 04:19] LABS: CHLORIDE 102 MMOL/L (98-107); POTASSIUM 4.5 MMOL/L (3.6-5.0); SODIUM 137 MMOL/L (135-145)
[2020-07-08 04:20] LABS: CALCIUM 8.3 MG/DL (8.5-10.1)
[2020-07-08 04:21] LABS: GLUCOSE 83 MG/DL (70-105)
[2020-07-08 04:22] LABS: CARBON DIOXIDE 26 MMOL/L (21-32)
[2020-07-08 04:24] LABS: PHOSPHORUS 3.3 MG/DL (2.3-4.7)
[2020-07-08 04:25] LABS: BUN/CREATININE RATIO 18; CREATININE SERUM 1.07 MG/DL (0.60-1.30); GFR ESTIMATED > 60
[2020-07-08 04:27] LABS: MAGNESIUM 1.7 MG/DL (1.6-2.4)
[2020-07-08] MEDS: NOREPINEPHRINE 4 MG/250 ML 250 ML IV SCH (04:38)
[2020-07-08] MEDS: MAGNESIUM 1 GM/100 ML IVPB 100 ML IV SCH ×3 (04:39→06:06)
[2020-07-08] MEDS ORDERED: KCL 20 MEQ TAB (K-DUR) PO SCH (06:00)
[2020-07-08] MEDS ORDERED: POTASSIUM CL 10MEQ/50ML IVPB 50 ML IV SCH (06:00)
--- NOTE | 2020-07-08 06:22 | Pulmonary Consultation ---
History of Present Illness History of Present Illness Date Seen by Provider: Jul 08, 2020 Time Seen by Provider: 06:17 Date of Admission Allergies and Home Medications Allergies Coded Allergies: chlorpheniramine (Unverified Allergy, Unknown, 12/14/14) pseudoephedrine (Unverified Allergy, Unknown, 12/14/14) Home Medications Aspirin 81 Mg Tablet.dr, 81 MG PO DAILY, (Reported) Atorvastatin Calcium 10 Mg Tablet, 10 MG PO DAILY Prescribed by: WOLFGANG BARKER on 07/15/15 0953 Diazepam 5 Mg Tablet, 5 MG PO TID, (Reported) Enalapril Maleate 5 Mg Tab, 5 MG PO DAILY, (Reported) Fish Oil/Dha/Epa 1 Each Capsule, 1,200 MG PO TID, (Reported) Multivitamin 1 Each Tablet, 1 EACH PO DAILY, (Reported) Omeprazole 40 Mg Capsule.dr, 40 MG PO DAILY, (Reported) Oxycodone Hcl 30 Mg Tab.sr.12h, 30 MG PO BID, (Reported) Oxycodone Hcl/Acetaminophen 1 Tab Tablet, 1 TAB PO QID, (Reported) Warfarin Sod 5 Mg Tab, 5 MG PO , (Reported) MONDAY,MONDAY Warfarin Sodium 7.5 Mg Tablet, 7.5 MG PO MOWETHRFRISUN, (Reported) Monday, Monday, , Monday,MONDAY Past Afvlssi-Ibizva-Pyamuc Hx Past Med/Social Hx: Reviewed Nursing Past Med/Soc Hx Patient Social History Alcohol Use: Denies Use Smoking Status: Current Everyday Smoker Type Used: Cigarettes Recent Infectious Disease Expo: No Recent Hopitalizations: No Immunizations Up To Date Tetanus Booster (TDap): Unknown Date of Influenza Vaccine: Feb 07, 2020 Seasonal Allergies Seasonal Allergies: No Past Medical History Surgeries: Yes (back, knees, ) Orthopedic Respiratory: No Currently Using CPAP: No Currently Using BIPAP: No Cardiac: Yes Neurological: Yes (EXPRESSIVE APHASIA) Stroke Reproductive Disorders: No Gastrointestinal: No Musculoskeletal: Yes (SPINE SURGERY) Endocrine: No Cancer: No Psychosocial: No Integumentary: No Blood Disorders: No Adverse Reaction/Blood Tranf: No Family Medical History Reviewed Nursing Family Hx Cardiovascular disease G8 BROTHER G8 BROTHER G8 BROTHER FH: cancer 19 FATHER 19 MOTHER (UTERINE) FH: lung cancer GRANDFATHER No Pertinent Family Hx Sepsis Event Evaluation Height, Weight, BMI Height: 6'2.00" Weight: 251lbs. 2.0oz. 113.328213hp; 38.52 BMI Method:Stated Exam Exam Vital Signs Date Time Temp Pulse Resp B/P (MAP) Pulse Ox O2 Delivery O2 Flow Rate FiO2 07/08/20 06:00 61 9 94/74 (81) 93 Nasal Cannula 2.00 07/08/20 05:00 94 24 125/76 (92) 94 Nasal Cannula 2.00 07/08/20 04:00 61 10 109/75 (86) 96 Nasal Cannula 2.00 07/08/20 04:00 37.9 Nasal Cannula 2.00 07/08/20 03:58 Room Air 07/08/20 03:00 60 9 99/75 (83) 96 Nasal Cannula 2.00 07/08/20 02:00 64 11 113/79 (90) 93 Nasal Cannula 2.00 07/08/20 01:00 68 104/80 (88) 94 Nasal Cannula 2.00 07/08/20 01:00 68 07/08/20 00:01 Room Air 07/08/20 00:00 71 102/73 (83) 93 Nasal Cannula 2.00 07/07/20 23:06 93 Room Air 07/07/20 23:00 87 13 123/93 (103) 91 Nasal Cannula 2.00 07/07/20 23:00 37.6 07/07/20 22:47 85 20 94 Nasal Cannula 2.00 07/07/20 22:07 87 12 123/93 (103) 86 Room Air 07/07/20 21:00 80 16 91 Room Air 07/07/20 20:00 Room Air 07/07/20 20:00 83 11 95 Room Air 07/07/20 19:00 118/72 (87) 07/07/20 19:00 84 26 94 Room Air 07/07/20 19:00 84 07/07/20 19:00 38.0 Room Air 07/07/20 18:00 64 13 91 Room Air 07/07/20 17:12 86 07/07/20 17:11 100 25 121/53 (75) 95 Room Air 07/07/20 17:00 Room Air 07/07/20 16:39 62 16 106/79 (96) 95 07/07/20 10:00 38.6 117 16 116/86 (96) 93 Room Air I & O 07/08/20 07:00 Intake Total 5860 ml Output Total 1650 ml Balance 4210 ml Height & Weight Height: 6'2.00" Weight: 251lbs. 2.0oz. 113.654959ku; 38.52 BMI Method:Stated General Appearance: No Apparent Distress, WD/WN, Other (Diaphoretic) HEENT: PERRL/EOMI, TMs Normal, Normal ENT Inspection, Pharynx Normal, Other (Leukoplakia on the tongue) Neck: Normal Inspection Respiratory: Lungs Clear, Normal Breath Sounds, No Accessory Muscle Use Cardiovascular: Regular Rate, Rhythm, No Edema, No Murmur, Normal Peripheral Pulses Capillary Refill: Less Than 3 Seconds Peripheral Pulses: 1+ Radial Pulses (R) Extremity: Normal Inspection, No Pedal Edema Neurologic/Psychiatric: Alert, Oriented x3, No Motor/Sensory Deficits, Normal Mood/Affect, Other (Expressive aphasia, especially with numbers) Results Lab Laboratory Tests 07/07/20 10:10 07/08/20 02:42 Assessment/Plan Assessment/Plan UTI with sepsis -- improved -Continue Rocephin -Bellamy cultures pending Agitation Hx of CVA MAGGIE PENA DO Jul 08, 2020 06:22
[2020-07-08] MEDS ORDERED: DIAZEPAM 5 MG (VALIUM) TABLET PO PRN (06:30)
--- NOTE | 2020-07-08 07:36 | Diagnostic Imaging Report ---
Indication: Hypertension. UTI. Septic shock. Comparison with 07/07/2020. FINDINGS: Heart size is unchanged upper limits of normal. Mild prominence of pulmonary vasculature are again noted. There is increased density developing in the right lung base. Mild left perihilar infiltrate noted as well now. No pneumothorax or pleural effusion. IMPRESSION: Developing of infiltrates in the right lower lobe and left perihilar region since previous exam. Dictated by: Dictated on workstation # [id number]
[2020-07-08 08:23] LABS: INR 3.1 (0.8-1.4); PROTHROMBIN TIME PATIENT 32.1 SEC (12.2-14.7)
[2020-07-08] MEDS: SENNA W/DOCUSATE (SENOKOT S) TABLET PO SCH ×2 (09:00→20:45)
[2020-07-08] MEDS: polyethylene glycoL POWDER 17 GM (MIRALAX) PACK PO SCH ×2 (09:00→20:45)
[2020-07-08] MEDS: ASPIRIN E.C. 81 MG (ECOTRIN) TAB PO SCH (09:11)
[2020-07-08] MEDS: oxyCODONE ER 15 MG (oxyCONTIN CR) TAB PO PRN (09:12)
[2020-07-08] MEDS: oxyCODONE/APAP 10/325MG (PERCOCET 10) TABLET PO PRN ×3 (09:12→20:45)
[2020-07-08] MEDS ORDERED: WARF-48 PO (10:36)
[2020-07-08] MEDS ORDERED: ENLP5T PO (10:36)
[2020-07-08] MEDS ORDERED: ATOR10TA66 PO (10:36)
[2020-07-08] MEDS ORDERED: DIAZ5TAB49 PO (10:36)
[2020-07-08] MEDS ORDERED: MULT-1136 PO (10:36)
[2020-07-08] MEDS ORDERED: OXYC-556 PO (10:36)
[2020-07-08] MEDS ORDERED: OXYC-565 PO (10:36)
[2020-07-08] MEDS ORDERED: OXYC30TA77 PO (10:36)
[2020-07-08] MEDS ORDERED: ASPI-1238 PO (10:36)
--- NOTE | 2020-07-08 13:58 | History & Physical-Hospitalist ---
History of Present Illness HPI/Chief Complaint Justin Myles is a 60-year-old male with past medical history of hypertension, hyperlipidemia, history of stroke with residual deficits, anxiety, chronic pain, who presented with malaise and was found to be in septic shock due to a urinary tract infection. He is a poor historian due to his speech difficulty which is a residual defiit of a previous stroke. He is able to answer some direct questions though. He denies any fevers or chills. He denies any shortness of breath or cough. He denies any chest pain or palpitations. He reports nausea. He denies any abdominal pain, vomiting, or diarrhea. He denies dysuria. He reports that he just has not felt well. Source: patient Exam Limitations: language barrier (residual stroke symptoms) Date Seen 07/08/20 Time Seen by a Provider: 09:05 Attending Physician Magdalena Chiu MD PCP Jeremy Suggs MD Referring Physician Date of Admission Jul 07, 2020 at 16:27 Home Medications & Allergies Home Medications Reviewed patient Home Medication Reconciliation performed by pharmacy medication reconciliations refrigerating technician and/or nursing. Patients Allergies have been reviewed. Allergies Allergies Coded Allergies chlorpheniramine (Unverified Allergy, Unknown, 12/14/14) pseudoephedrine (Unverified Allergy, Unknown, 12/14/14) Past Wvygkvq-Vsexbg-Clnuzm Hx Past Med/Social Hx: Reviewed Nursing Past Med/Soc Hx Patient Social History Alcohol Use: Denies Use Recreational Drug Use: Yes (SMOKES 2 PPD) Smoking Status: Current Everyday Smoker Type Used: Cigarettes Recent Foreign Travel: No Contact w/other who traveled: No Recent Hopitalizations: No Recent Infectious Disease Expo: No Immunizations Up To Date Tetanus Booster (TDap): Unknown Date of Influenza Vaccine: Feb 07, 2020 Seasonal Allergies Seasonal Allergies: No Past Medical History Surgeries: Orthopedic Currently Using CPAP: No Currently Using BIPAP: No Neurological: Stroke Reproductive: No History of Blood Disorders: No Adverse Reaction to Blood Morales: No Family History Reviewed Nursing Family Hx Cardiovascular disease G8 BROTHER G8 BROTHER G8 BROTHER FH: cancer 19 FATHER 19 MOTHER (UTERINE) FH: lung cancer GRANDFATHER No Pertinent Family Hx Review of Systems Constitutional: see HPI, malaise Physical Exam Physical Exam Vital Signs Vital Signs - First Documented 07/07/20 07/07/20 10:00 22:47 Temp 38.6 Pulse 117 Resp 16 B/P (MAP) 116/86 (96) Pulse Ox 93 O2 Delivery Room Air O2 Flow Rate 2.00 Capillary Refill : Less Than 3 Seconds Height, Weight, BMI Height: 6'2.00" Weight: 251lbs. 2.0oz. 113.808611pn; 38.52 BMI Method:Stated General Appearance: No Apparent Distress, Obese HEENT: PERRL/EOMI Neck: Normal Inspection Respiratory: Lungs Clear, Normal Breath Sounds, No Respiratory Distress Cardiovascular: Regular Rate, Rhythm, No Edema, No Murmur Gastrointestinal: Normal Bowel Sounds, Non Tender, Soft Extremity: Normal Inspection, Non Tender, No Pedal Edema Neurologic/Psychiatric: Alert, Oriented x3, Normal Mood/Affect, Aphasia Skin: Normal Color, Warm/Dry Results Results/Procedures Labs Laboratory Tests 07/07/20 10:10 07/08/20 02:42 Patient resulted labs reviewed. Imaging: Reviewed Imaging Report Assessment/Plan Admission Diagnosis Septic shock due to urinary tract infection Admission Status: Inpatient Order (span 2 midnights) Reason for Inpatient Admission: Sepsis requiring IV antibiotics Assessment and Plan Septic shock Urinary tract infection Possible pneumonia SIRS+ with fever and tachycardia Shock with low blood pressure and urine output despite adequate fluid resuscitation Procalcitonin elevated Started on IV fluids Started on Rocephin Chest xray with developing infiltrates this morning, no pulmonary symptoms COVID negative Flu negative UA consistent with UTI Urine culture with E coli HTN HLD History of stroke Anxiety Chronic pain Continue home meds DVT prophylaxis: already receiving therapeutic anticoagulation Diagnosis/Problems Diagnosis/Problems (1) Septic shock Status: Acute (2) Urinary tract infection Status: Acute Qualifiers: Urinary tract infection type: site unspecified Hematuria presence: with hematuria Qualified Codes: N39.0 - Urinary tract infection, site not specified; R31.9 - Hematuria, unspecified MAGDALENA CHIU MD Jul 08, 2020 13:57
[2020-07-08] MEDS ORDERED: cefTRIAXone 1,000 MG/SWFI 10 ML IV PUSH IV SCH ×2 (15:00)
[2020-07-08] MEDS ORDERED: cefTRIAXone FOR IV USE 2,000 MG in WATER (STERILE) FOR INJECTION 20 ML IV SCH (16:00)
[2020-07-08] MEDS ORDERED: warFARin 2 MG (COUMADIN) TAB PO SCH ×2 (18:00)
[2020-07-08] MEDS ORDERED: warFARin 5 MG (COUMADIN) TAB PO SCH (18:00)
[2020-07-09 00:08] VITALS: BP 110/76
[2020-07-09 03:44] VITALS: BP 128/73
[2020-07-09 05:55] LABS: BASOPHILS % (AUTO) 0 % (0-10); HEMATOCRIT 39 % (40-54); HEMOGLOBIN 12.6 g/dL (13.3-17.7); LYMPHOCYTES % (AUTO) 42 % (12-44); MEAN CORPUSCULAR HGB CONC 32 g/dL (32-36)
[2020-07-09 05:57] LABS: EOSINOPHILS # (AUTO) 0.2 10^3/uL (0.0-0.3); EOSINOPHILS % (AUTO) 3 % (0-10); LYMPHOCYTES # (AUTO) 2.4 10^3/uL (1.0-4.0); MEAN CORPUSCULAR HEMOGLOBIN 29 pg (25-34); MEAN CORPUSCULAR VOLUME 91 fL (80-99); MEAN PLATELET VOLUME 10.9 fL (9.0-12.2); MONOCYTES # (AUTO) 0.9 10^3/uL (0.0-1.0); MONOCYTES % (AUTO) 16 % (0-12); NEUTROPHILS # (AUTO) 2.2 10^3/uL (1.8-7.8); NEUTROPHILS % (AUTO) 39 % (42-75); PLATELET COUNT 132 10^3/uL (130-400); WHITE BLOOD COUNT 5.6 10^3/uL (4.3-11.0)
[2020-07-09 06:04] LABS: INR 2.1 (0.8-1.4); PROTHROMBIN TIME PATIENT 23.7 SEC (12.2-14.7)
[2020-07-09 06:06] LABS: CHLORIDE 104 MMOL/L (98-107); POTASSIUM 4.8 MMOL/L (3.6-5.0); SODIUM 141 MMOL/L (135-145)
[2020-07-09 06:07] LABS: CALCIUM 9.1 MG/DL (8.5-10.1)
[2020-07-09 06:08] LABS: GLUCOSE 88 MG/DL (70-105)
[2020-07-09 06:09] LABS: CARBON DIOXIDE 29 MMOL/L (21-32)
[2020-07-09 06:11] LABS: PHOSPHORUS 3.3 MG/DL (2.3-4.7)
[2020-07-09 06:12] LABS: GFR ESTIMATED > 60
[2020-07-09 06:13] LABS: BUN/CREATININE RATIO 16
[2020-07-09 06:14] LABS: MAGNESIUM 1.8 MG/DL (1.6-2.4)
[2020-07-09] MEDS: MAGNESIUM 1 GM/100 ML IVPB 100 ML IV SCH (06:47)
[2020-07-09] MEDS ORDERED: cefTRIAXone FOR IV USE 1,000 MG in WATER (STERILE) FOR INJECTION 10 ML IV SCH (07:00)
[2020-07-09 08:00] VITALS: BP 124/89
[2020-07-09] MEDS: polyethylene glycoL POWDER 17 GM (MIRALAX) PACK PO SCH (08:26)
[2020-07-09] MEDS: ASPIRIN E.C. 81 MG (ECOTRIN) TAB PO SCH (08:26)
[2020-07-09] MEDS: SENNA W/DOCUSATE (SENOKOT S) TABLET PO SCH (08:27)
[2020-07-09] MEDS: oxyCODONE ER 15 MG (oxyCONTIN CR) TAB PO PRN (08:34)
[2020-07-09] MEDS ORDERED: CEFD300C3 PO (09:19)
--- NOTE | 2020-07-09 10:34 | Discharge Summary ---
Discharge Summary Hospital Course Was the Problem List Reviewed?: Yes Problems/Dx: (1) Septic shock Status: Acute (2) Urinary tract infection Status: Acute Qualifiers: Qualified Codes: N39.0 - Urinary tract infection, site not specified; R31.9 - Hematuria, unspecified Hospital Course Date of Admission: Jul 07, 2020 at 16:27 Admission Diagnosis : septic shock due to UTI Family Physician/Provider: Ming Marvin MD Date of Discharge: 07/09/20 Discharge Diagnosis: septic shock due to UTI Hospital Course: Justin Myles is a 60-year-old male with history of stroke with residual deficits who was admitted with septic shock due to urinary tract infection. He was started on antibiotics and improved rapidly. His urine culture was growing Escherichia coli. Final ID and susceptibilities were pending at the time of discharge. He was given a prescription for Omnicef. He should follow-up with his primary care physician. He did have a significant hematuria which is possibly due to his urinary tract infection. He should have a repeat urinalysis and a few weeks. He was discharged home in stable condition. Labs and Pending Lab Test: Laboratory Tests 07/09/20 05:43: White Blood Count 5.6, Red Blood Count 4.30, Hemoglobin 12.6L, Hematocrit 39L, Mean Corpuscular Volume 91, Mean Corpuscular Hemoglobin 29, Mean Corpuscular Hemoglobin Concent 32, Red Cell Distribution Width 14.0, Platelet Count 132, Mean Platelet Volume 10.9, Immature Granulocyte % (Auto) 0, Neutrophils (%) (Auto) 39L, Lymphocytes (%) (Auto) 42, Monocytes (%) (Auto) 16H, Eosinophils (%) (Auto) 3, Basophils (%) (Auto) 0, Neutrophils # (Auto) 2.2, Lymphocytes # (Auto) 2.4, Monocytes # (Auto) 0.9, Eosinophils # (Auto) 0.2, Basophils # (Auto) 0.0, Immature Granulocyte # (Auto) 0.0, Prothrombin Time 23.7H, INR Comment 2.1H, Sodium Level 141, Potassium Level 4.8, Chloride Level 104, Carbon Dioxide Level 29, Anion Gap 8, Blood Urea Nitrogen 14, Creatinine 0.90, Estimat Glomerular Filtration Rate > 60, BUN/Creatinine Ratio 16, Glucose Level 88, Calcium Level 9.1, Phosphorus Level 3.3, Magnesium Level 1.8 Microbiology 07/07/20 MRSA Screen - Final, Complete MRSA not isolated 07/07/20 Urine Culture - Preliminary, Resulted Escherichia coli 07/07/20 Blood Culture - Preliminary, Resulted No growth Home Meds Active Cefdinir 300 Mg Capsule 300 Mg PO BID 10 Days Reported Aspirin EC (Aspirin) 81 Mg Tablet.dr 81 Mg PO DAILY Warfarin Sodium 5 Mg Tablet 5 Mg PO MON, Enalapril Maleate 5 Mg Tablet 5 Mg PO DAILY Oxycontin (Oxycodone HCl) 30 Mg Tab.er.12h 30 Mg PO BID Oxycodone-Acetaminophen 10-325 (Oxycodone HCl/Acetaminophen) 1 Each Tablet 1 Ea PO QID Diazepam 5 Mg Tablet 5 Mg PO TID Atorvastatin Calcium 10 Mg Tablet 10 Mg PO HS Multivitamin 1 Each Tablet 1 Each PO DAILY Oxycodone HCl ER (Oxycodone HCl) 30 Mg Tab.er.12h 30 Mg PO DAILY PRN Omeprazole 40 Mg Capsule.dr 40 Mg PO BID Fish Oil 1,200 mg Fish Oil (Fish Oil/Dha/Epa) 1 Each Capsule 1,200 Mg PO BID Warfarin Sodium 7.5 Mg Tablet 7.5 Mg PO MON,WE,FR,SAT Assessment/Pt Instructions take medications as prescribed. Complete her course of antibiotics even if you're feeling better. Follow-up with your primary care physician. Return with worsening fevers, pain, or if you feel like you're getting worse. Discharge Planning: <30 minutes discharge planning Discharge Instructions Discharge Diet: No Restrictions Activity as Tolerated: Yes Discharge Physical Examination Vital Signs Vital Signs Date Time Temp Pulse Resp B/P (MAP) Pulse Ox O2 Delivery O2 Flow Rate FiO2 07/09/20 08:00 36.0 63 20 124/89 (101) 93 Room Air 07/08/20 08:00 2.00 General Appearance: No Apparent Distress, Obese Respiratory: Lungs Clear, Normal Breath Sounds, No Respiratory Distress Cardiovascular: Regular Rate, Rhythm, No Edema, No Murmur Gastrointestinal: Normal Bowel Sounds, Non Tender, Soft Extremity: Normal Inspection, Non Tender, No Pedal Edema Skin: Normal Color, Warm/Dry Neurologic/Psychiatric: Alert, Oriented x3, Normal Mood/Affect, Aphasia (word finding difficulties following previous stroke) Allergies: Coded Allergies: chlorpheniramine (Unverified Allergy, Unknown, 12/14/14) pseudoephedrine (Unverified Allergy, Unknown, 12/14/14) Copy Copies To 1: MING MARVIN MD Discharge Summary Date of Admission Jul 07, 2020 at 16:27 Date of Discharge Discharge Date: Jul 09, 2020 Discharge Time: 10:32 Admission Diagnosis Septic shock due to urinary tract infection Discharge Diagnosis Septic shock Urinary tract infection (1) Septic shock Status: Acute (2) Urinary tract infection Status: Acute Qualifiers: Qualified Codes: N39.0 - Urinary tract infection, site not specified; R31.9 - Hematuria, unspecified MAGDALENA CHIU MD Jul 09, 2020 10:34
== END 2020-07-09 12:25 | disposition home or self-care (01) | DRG 871 ==
LOC: EDUNIT# 09:50 → ER 09:52 → ICU 16:27 → 4TH 07-08 10:23
PROVIDERS: ADMIT Internal Medicine; ATTEND Internal Medicine
DX: A41.51 Sepsis due to Escherichia coli [E. coli] (principal); R65.21 Severe sepsis with septic shock; N39.0 Urinary tract infection, site not specified; I69.320 Aphasia following cerebral infarction; F17.210 Nicotine dependence, cigarettes, uncomplicated; I10 Essential (primary) hypertension; E78.5 Hyperlipidemia, unspecified; F41.9 Anxiety disorder, unspecified; Z20.822 Contact with and (suspected) exposure to COVID-19; G89.29 Other chronic pain; Z79.01 Long term (current) use of anticoagulants; Z79.82 Long term (current) use of aspirin; Z79.891 Long term (current) use of opiate analgesic; Z88.8 Allergy status to other drugs, medicaments and biological substances
CPT/HCPCS: 36415; 71045; 80048; 80053; 81000; 82550; 83605; 83735; 84100; 84145; 85025; 85610; 85730; 86141; 87040; 87077; 87081; 87088; 87186; 87635; 87804; 94760

== ENCOUNTER → 2022-09-19 | Outpatient (CLI) | payer MEDICARE ==
[~2022-09-19] MED LIST changes: +ASPI-1238 PO; +ATOR10TA66 PO; +ENAL-66 PO; +MULT-1136 PO; +OMEP40CA6 PO; +OXYC-556 PO; +OXYC-565 PO; +OXYC30TA77 PO; +WARF-48 PO
--- NOTE | 2022-09-19 10:33 | Diagnostic Imaging Report ---
INDICATION: Cough. PA and lateral views were obtained. Comparison made with prior examination from 07/08/2020. FINDINGS: The heart size is stable. There is patchy right basal infiltrate. There is no pleural effusion or pneumothorax. The mediastinum is unremarkable. IMPRESSION: Patchy right basal pulmonary infiltrate. Dictated by: Dictated on workstation # [id number]
== END ==
LOC: RAD 10:00
PROVIDERS: ATTEND Internal Medicine
DX: R91.8 Other nonspecific abnormal finding of lung field (principal); R05.9 Cough, unspecified
CPT/HCPCS: 71046

== ENCOUNTER 2022-09-29 17:24 | Emergency (ER) | payer MEDICARE ==
[~2022-09-29] VITALS: Ht 188 cm; Wt 97.5 kg
[2022-09-29] MEDS: ONDANSETRON 4 MG/2 ML (SDV) Z0FRAN IVP ONE ×2 (18:21→18:46)
[2022-09-29] MEDS ORDERED: RT-ALBUTEROL/IPRATROPIUM 3 ML (DUONEB) VIAL INH ONE (19:45)
--- NOTE | 2022-09-29 20:17 | Diagnostic Imaging Report ---
INDICATION: Cough and congestion. COMPARISON: 07/05/2020. FINDINGS: Frontal and lateral radiographic views of the chest were obtained and show asymmetric prominence of the right suprahilar region. Heart size is within normal limits. Lungs are otherwise clear. There is no large effusion or pneumothorax. Osseous structures show no gross acute abnormality. IMPRESSION: Asymmetric prominence of the right suprahilar region concerning for mediastinal adenopathy or potential perihilar infiltrate. Underlying mass is not excluded. Follow-up to resolution is advised. If area of concern persists, correlation with postcontrast CT of the chest is recommended. Dictated by: Dictated on workstation # [id number]
[2022-09-29] MEDS ORDERED: RT-ALBUTEROL HFA 8.5 GM INHALER IH STA (20:39)
[2022-09-29] MEDS ORDERED: CEFDINIR 300 MG (OMNICEF) CAP PO ONE (20:45)
[2022-09-29 20:46] LABS: BASOPHILS % (AUTO) 0 % (0-10); EOSINOPHILS # (AUTO) 0.3 10^3/uL (0.0-0.3); EOSINOPHILS % (AUTO) 2 % (0-10); HEMATOCRIT 47 % (40-54); HEMOGLOBIN 14.9 g/dL (13.3-17.7); LYMPHOCYTES # (AUTO) 3.7 10^3/uL (1.0-4.0); LYMPHOCYTES % (AUTO) 34 % (12-44); MEAN CORPUSCULAR HEMOGLOBIN 29 pg (25-34); MEAN CORPUSCULAR HGB CONC 32 g/dL (32-36); MEAN CORPUSCULAR VOLUME 90 fL (80-99); MEAN PLATELET VOLUME 11.7 fL (9.0-12.2); MONOCYTES # (AUTO) 0.7 10^3/uL (0.0-1.0); MONOCYTES % (AUTO) 6 % (0-12); NEUTROPHILS # (AUTO) 6.2 10^3/uL (1.8-7.8); NEUTROPHILS % (AUTO) 57 % (42-75); PLATELET COUNT 237 10^3/uL (130-400); WHITE BLOOD COUNT 10.8 10^3/uL (4.3-11.0)
[2022-09-29] MEDS ORDERED: CEFD300C3 PO (20:50)
--- NOTE | 2022-09-29 20:51 | ED General ---
General Chief Complaint: Cough/Cold/Flu Symptoms Stated Complaint: NASAL CONGESTION|WEAKNESS Nursing Triage Note: PT AMBULATE TO ROOM 06 WITHOUT DIFFICULTY WITH C/O COUGH, CONGESTION X5 WEEKS. PT REPORTS SEEING PCP X3 FOR THIS C/O AND GIVEN PRESCRIPTIONS. PT REPORTS RECEIVING PREDISONE AND LEVOFLOXACIN THAT "ALMOST KILLED ME". PT ALSO REPORTS RECEIVING AZITHROMYCIN THAT "ALMOST KILLE ME AFTER 2 HOURS." PT REPORTS RECEIVING CEFDINIR THAT "DIDN'T DO ANYTHING." PT STATES THAT HE "WANTS SOMEONE TO FIGURE THIS OUT". Source of Information: Patient Exam Limitations: No Limitations History of Present Illness Date Seen by Provider: September 29, 2022 Time Seen by Provider: 18:30 Initial Comments This 62-year-old gentleman presents to the emergency room with complaints of cough, congestion, and shortness of air for about 5 weeks. He has been seen by his primary care provider, Dr. Marvin, multiple times and prescribed multiple rounds of antibiotics. His first antibiotic was azithromycin which he states caused a severe reaction he has a difficult time articulating. He then c ompleted 7 days of cefdinir on September 05. This was followed by Fiorella on September 19. He only took 1 dose of Levaquin and states that it also caused a severe reaction he has difficulty articulating. Patient has some difficulty with history due to expressive aphasia from prior stroke. Review of chart notes a chest x-ray on September 19 showing right-sided infiltrates. Patient reports cough but denies any chest pain or fever. He has had some headache. He continues to smoke. He has notable wheezing on exam but does not use any bronchodilators. Allergies and Home Medications Allergies Coded Allergies: azithromycin (Verified Allergy, Unknown, 09/29/22) chlorpheniramine (Unverified Allergy, Unknown, 12/14/14) levofloxacin (Verified Allergy, Unknown, 09/29/22) prednisone (Verified Allergy, Unknown, 09/29/22) pseudoephedrine (Unverified Allergy, Unknown, 12/14/14) Patient Home Medication List Home Medication List Reviewed: Yes Aspirin (Aspirin EC) 81 Mg Tablet.dr, 81 MG PO DAILY, (Reported) Entered as Reported by: AINSLEY OAKLEY on 07/08/20 1036 Atorvastatin Calcium (Atorvastatin Calcium) 10 Mg Tablet, 10 MG PO HS, (Reported) Entered as Reported by: AINSLEY OAKLEY on 07/08/20 1036 Cefdinir (Cefdinir) 300 Mg Capsule, 300 MG PO BID Prescribed by: MAGDALENA CHIU on 07/09/20 0919 Cefdinir (Cefdinir) 300 Mg Capsule, 300 MG PO BID Prescribed by: ZEV OLIVARES on 09/29/222049 Diazepam (Diazepam) 5 Mg Tablet, 5 MG PO TID, (Reported) Entered as Reported by: AINSLEY OAKLEY on 07/08/20 103 Enalapril Maleate (Enalapril Maleate) 5 Mg Tablet, 5 MG PO DAILY, (Reported) Entered as Reported by: AINSLEY OAKLEY on 07/08/20 1036 Fish Oil/Dha/Epa (Fish Oil 1,200 mg Fish Oil) 1 Each Capsule, 1,200 MG PO BID, (Reported) Entered as Reported by: OLIMPIA CONTI on 07/15/15 0822 Multivitamin (Multivitamin) 1 Each Tablet, 1 EACH PO DAILY, (Reported) Entered as Reported by: AINSLEY OAKLEY on 07/08/20 103 Omeprazole (Omeprazole) 40 Mg Capsule.dr, 40 MG PO BID, (Reported) Entered as Reported by: YUMIKO HAGAN on 07/07/20 1715 Oxycodone HCl (Oxycodone HCl ER) 30 Mg Tab.er.12h, 30 MG PO DAILY PRN for PAIN- BREAKTHROUGH, (Reported) Entered as Reported by: AINSLEY OAKLEY on 07/08/20 1036 Oxycodone HCl (Oxycontin) 30 Mg Tab.er.12h, 30 MG PO BID, (Reported) Entered as Reported by: AINSLEY OAKLEY on 07/08/20 1036 Oxycodone HCl/Acetaminophen (Oxycodone-Acetaminophen 10-325) 1 Each Tablet, 1 EA PO QID, (Reported) Entered as Reported by: AINSLEY OAKLEY on 07/08/20 103 Warfarin Sodium (Warfarin Sodium) 7.5 Mg Tablet, 7.5 MG PO MON,WE,FR,SAT, (Repor jean pierre) Entered as Reported by: TIFFANY YOUNG on 12/15/14 1029 Warfarin Sodium (Warfarin Sodium) 5 Mg Tablet, 5 MG PO MON,,TH, (Reported) Entered as Reported by: AINSLEY OAKLEY on 07/08/20 1036 Review of Systems Review of Systems Constitutional: no symptoms reported EENTM: no symptoms reported Respiratory: see HPI Cardiovascular: no symptoms reported Gastrointestinal: no symptoms reported Genitourinary: no symptoms reported Musculoskeletal: no symptoms reported Skin: no symptoms reported Psychiatric/Neurological: See HPI Hematologic/Lymphatic: No Symptoms Reported Immunological/Allergic: no symptoms reported Past Idqmhgj-Iideqa-Irmhui Hx Patient Social History Tobacco Use?: Yes Tobacco type used: Cigarettes Smoking Status: Current Everyday Smoker Smokeless Tobacco Frequency: Never a User Use of E-Cig and/or Vaping dev: No Use of E-Cig and/or Vaping Topher: Never a User Substance use?: No Alcohol Use?: No Pt feels they are or have been: No Immunizations Up To Date Tetanus Booster (TDap): Unknown Seasonal Allergies Seasonal Allergies: No Past Medical History Surgeries: Yes (back, knees, ) Orthopedic Respiratory: No Currently Using CPAP: No Currently Using BIPAP: No Cardiac: Yes High Cholesterol, Hypertension Neurological: Yes (EXPRESSIVE APHASIA) Stroke Reproductive Disorders: No Gastrointestinal: No Musculoskeletal: Yes (SPINE SURGERY) Endocrine: No Cancer: No Psychosocial: Yes Anxiety Integumentary: No Blood Disorders: No Adverse Reaction/Blood Tranf: No Family Medical History Cardiovascular disease G8 BROTHER G8 BROTHER G8 BROTHER FH: cancer 19 FATHER 19 MOTHER (UTERINE) FH: lung cancer GRANDFATHER No Pertinent Family Hx Physical Exam Vital Signs Vital Signs - First Documented 09/29/22 09/29/22 18:06 20:02 Temp 36.1 Pulse 122 Resp 19 B/P (MAP) 128/62 (84) Pulse Ox 94 O2 Delivery Room Air O2 Flow Rate 0 FiO2 21 Capillary Refill : Less Than 3 Seconds Height, Weight, BMI Height: 6'2.00" Weight: 251lbs. 2.0oz. [id number]; 27.00 BMI Method:Stated General Appearance: WD/WN, Other (Slightly agitated and restless) HEENT: PERRL/EOMI, TMs Normal, Normal ENT Inspection Neck: Normal Inspection; No JVD Respiratory: No Accessory Muscle Use, No Respiratory Distress; No Crackles; Wheezing Cardiovascular: Regular Rate, Rhythm, No Edema, No Murmur Extremity: No Pedal Edema Neurologic/Psychiatric: Alert, Oriented x3, No Motor/Sensory Deficits, Other (Mild expressive aphasia, slightly agitated) Skin: Normal Color, Warm/Dry Progress/Results/Core Measures Suspected Sepsis SIRS Temperature: Pulse: 122 Respiratory Rate: 19 Laboratory Tests 09/29/22 18:15: White Blood Count 10.8 Blood Pressure 128 /62 Mean: 84 Laboratory Tests 09/29/22 18:15: Creatinine 0.93, Platelet Count 237 Results/Orders Lab Results Laboratory Tests Test 09/29/22 18:15 09/29/22 18:44 Range/Units White Blood Count 10.8 4.3-11.0 10^3/uL Red Blood Count 5.19 4.30-5.52 10^6/uL Hemoglobin 14.9 13.3-17.7 g/dL Hematocrit 47 40-54 % Mean Corpuscular Volume 90 80-99 fL Mean Corpuscular Hemoglobin 29 25-34 pg Mean Corpuscular Hemoglobin Concent 32 32-36 g/dL Red Cell Distribution Width 14.2 10.0-14.5 % Platelet Count 237 130-400 10^3/uL Mean Platelet Volume 11.7 9.0-12.2 fL Immature Granulocyte % (Auto) 0 % Neutrophils (%) (Auto) 57 42-75 % Lymphocytes (%) (Auto) 34 12-44 % Monocytes (%) (Auto) 6 0-12 % Eosinophils (%) (Auto) 2 0-10 % Basophils (%) (Auto) 0 0-10 % Neutrophils # (Auto) 6.2 1.8-7.8 10^3/uL Lymphocytes # (Auto) 3.7 1.0-4.0 10^3/uL Monocytes # (Auto) 0.7 0.0-1.0 10^3/uL Eosinophils # (Auto) 0.3 0.0-0.3 10^3/uL Basophils # (Auto) 0.0 0.0-0.1 10^3/uL Immature Granulocyte # (Auto) 0.0 0.0-0.1 10^3/uL Sodium Level 138 135-145 MMOL/L Potassium Level 4.0 3.6-5.0 MMOL/L Chloride Level 98 98-107 MMOL/L Carbon Dioxide Level 30 21-32 MMOL/L Anion Gap 10 5-14 MMOL/L Blood Urea Nitrogen 9 7-18 MG/DL Creatinine 0.93 0.60-1.30 MG/DL Estimat Glomerular Filtration Rate 92 BUN/Creatinine Ratio 10 Glucose Level 104 70-105 MG/DL Calcium Level 10.2 H 8.5-10.1 MG/DL C-Reactive Protein High Sensitivity 2.99 H 0.00-0.50 MG/DL Influenza Type A (RT-PCR) Not Detected Not Detecte Influenza Type B (RT-PCR) Not Detected Not Detecte SARS-CoV-2 RNA (RT-PCR) Not Detected Not Detecte My Orders Orders - ZEV ARTEAGA MD Ondansetron Injection (Zofran Injectio (09/29/22 18:15) Covid 19 Inhouse Test (09/29/22 18:31) Influenza A And B By Pcr (09/29/22 18:31) Chest Pa/Lat (2 View) (09/29/22 19:41) Albuterol/Ipra Inhalation Soln (Duoneb I (09/29/22 19:45) Svn Small Volume Nebulizer (09/29/22 19:41) Albuterol Inhaler (Albuterol) (09/29/22 20:39) Basic Metabolic Panel (09/29/22 20:40) Cbc With Automated Diff (09/29/22 20:40) Hs C Reactive Protein (09/29/22 20:40) Cefdinir Capsule (Omnicef Capsule) (09/29/22 20:45) Medications Given in ED Current Medications Medications Dose Ordered Sig/Adrián Route Start Time Stop Time Status Last Admin Dose Admin Albuterol/ Ipratropium 3 ml ONCE ONCE INH 09/29/22 19:45 09/29/22 19:46 DC 09/29/22 20:02 3 ML Cefdinir 300 mg ONCE ONCE PO 09/29/22 20:45 09/29/22 20:46 DC 09/29/22 20:57 300 MG Vital Signs/I&O 09/29/22 09/29/22 09/29/22 09/29/22 18:06 18:06 20:02 20:58 Temp 36.1 36.1 Pulse 122 122 Resp 19 19 B/P (MAP) 128/62 (84) 128/62 Pulse Ox 94 94 O2 Delivery Room Air Room Air Room Air Room Air O2 Flow Rate 0 0 0 FiO2 21 Capillary Refill : Less Than 3 Seconds Blood Pressure Mean: 84 Progress Note : Progress Note Patient received a DuoNeb treatment in the emergency room which did reduce his wheezing and resulted in subjective improvement of shortness of air. Two-view chest x-ray was obtained. There is persistent perihilar infiltrate on the right. CT follow-up was suggested. This was offered to the patient in the ER but he wishes to discuss with his primary care provider first. Of the 3 antibiotics, he did finish the cefdinir started on September 05. However, chest x-ray on August 20 and again today demonstrated infiltrates. He is going to be retreated and follow-up with Dr. Marvin to determine if CT should be obtained and when. An albuterol inhaler with spacer chamber was dispensed. Patient wanted basic labs obtained to help guide his care but did not want to stay in the ER for results. Labs were reviewed after his departure including CBC, BMP, and CRP. CRP was minimally elevated and these labs were otherwise unremarkable by my interpretation. Chest x-ray was viewed and interpreted by me noting the right perihilar infiltrate. Radiologist's report was also reviewed as below. See discharge instructions for further discussion. Diagnostic Imaging Diagonstic Imaging: Xray Plain Films/CT/US/NM/MRI: chest Comments Chest x-ray viewed by me and report reviewed. See report below: NAME: KD DELGADO [facility] REC#: [id number] PT STATUS: REG ER : 1960 PHYSICIAN: ZEV ARTEAGA MD ADMIT DATE: 09/29/22/ER Draft Date of Exam:09/29/22 CHEST PA/LAT (2 VIEW) INDICATION: Cough and congestion. COMPARISON: 07/05/2020. FINDINGS: Frontal and lateral radiographic views of the chest were obtained and show asymmetric prominence of the right suprahilar region. Heart size is within normal limits. Lungs are otherwise clear. There is no large effusion or pneumothorax. Osseous structures show no gross acute abnormality. IMPRESSION: Asymmetric prominence of the right suprahilar region concerning for mediastinal adenopathy or potential perihilar infiltrate. Underlying mass is not excluded. Follow-up to resolution is advised. If area of concern persists, correlation with postcontrast CT of the chest is recommended. Dictated on workstation # [id number] Dict: 09/29/222006 Trans: 09/29/222015 [facility] [id number] Interpreted by: CHARLEY BACA MD Departure Impression Primary Impression: COPD exacerbation Additional Impressions: Pulmonary infiltrate Abnormal chest x-ray Disposition: 01 HOME, SELF-CARE Condition: Improved Departure-Patient Inst. Decision time for Depature: 20:47 Referrals: MING MARVIN MD (PCP/Family) Primary Care Physician Patient Instructions: COPD Exacerbation, Adult ED, Community-acquired pneumonia in adults, Quitting smoking Add. Discharge Instructions: Work on quitting smoking as rapidly as possible. Seek help from Dr. Marvin if necessary. Keep your follow-up appointment with Dr. Marvin. Discussed the treatments provided in the emergency room and if they should be continued or altered. Also discuss your abnormal chest x-ray. This chest x-ray should either be repeated after you finish the current round of antibiotics or followed with a CT scan with contrast as the radiologist recommends since you have already finished a round of antibiotics. Please discuss a plan with Dr. Marvin in that regard. Also reviewed your lab work with Dr. Marvin since you were discharged from the ER prior to lab results. Use your inhaler 1 to 4 puffs every 4 hours as needed for wheezing and shortness of breath. Return to the emergency room if you have worsening symptoms despite following these instructions. All discharge instructions reviewed with patient and/or family. Voiced understanding. Scripts Cefdinir (Cefdinir) 300 Mg Capsule 300 MG PO BID, #20 CAP 0 Refills Prov: ZEV ARTEAGA MD 09/29/22 Copy Copies To 1: MING MARVIN MD, JOSHUA T MD September 29, 2022 20:51
[2022-09-29 20:52] LABS: CALCIUM 10.2 MG/DL (8.5-10.1)
[2022-09-29 20:56] LABS: CREATININE SERUM 0.93 MG/DL (0.60-1.30)
[2022-09-29 20:58] VITALS: BP 128/62
== END 2022-09-29 21:00 | disposition home or self-care (01) ==
LOC: EDUNIT# 17:24 → ER 17:27
DX: J44.1 Chronic obstructive pulmonary disease with (acute) exacerbation (principal); R91.8 Other nonspecific abnormal finding of lung field; R93.89 Abnormal findings on diagnostic imaging of other specified body structures; F17.210 Nicotine dependence, cigarettes, uncomplicated; Z20.822 Contact with and (suspected) exposure to COVID-19; Z88.1 Allergy status to other antibiotic agents
CPT/HCPCS: 36415; 71046; 80048; 85025; 86141; 87636; 94640; 99283

== ENCOUNTER → 2023-02-08 | Outpatient (CLI) | payer MEDICARE ==
[~2023-02-08] MED LIST changes: +HOLD METFORMIN - RECEIVED CONTRAST 20 ML VIAL IV SCH; +IOHEXOL 350 MG/ML 100 ML (OMNIPAQUE 350) VIAL IV ONE; +NS 100 ML (IVPB) BAG IV ONE
--- NOTE | 2023-02-08 13:18 | Diagnostic Imaging Report ---
EXAMINATION: CT chest with intravenous contrast. TECHNIQUE: Multiple contiguous axial images were obtained through the chest after the uneventful administration of intravenous contrast. All CT scans use one or more of the following dose optimizing techniques: automated exposure control, MA and/or KvP adjustment based on patient size and exam type or iterative reconstruction. HISTORY: Acute exacerbation of COPD COMPARISON: None available. FINDINGS: Thyroid: The thyroid is normal. Mediastinum: Heart size is normal without significant pericardial effusion. Calcifications of the aorta and coronary vessels. Thoracic aorta is normal in caliber. There is a prominent mass encompassing the perihilar right lung and right mediastinum extending into the subcarinal space. Overall size of this total masslike conglomeration measures 10.7 x 7.2 cm. This results in narrowing of the SVC. There is encasement of the right main pulmonary artery. Lungs and airways: Prominent mass within the perihilar right upper lobe with apparent invasion into the mediastinum. Additional pulmonary nodular densities in the right upper lobe measuring up to 3.5 x 2.3 cm. There is atelectasis or fibrosis within the right middle lobe and lingula. There is occlusion of the anterior right upper lobe bronchial. No pleural effusion or pneumothorax. The airways are otherwise patent. Upper abdomen: The subphrenic structures are normal. Musculoskeletal: Degenerative changes of the spine without suspicious osseous lesion or compression fracture. IMPRESSION: 1. A suspicious right upper lobe mass which invades into the mediastinum. Findings are highly concerning for endobronchial neoplasm or primary lung neoplasm. A pulmonary metastasis would be within the differential as well. 2. Additional right upper lobe pulmonary nodular densities concerning for pulmonary metastatic disease. 3. Tumor invasion versus lymphadenopathy within the mediastinum. There is narrowing of the SVC as well as encasement of the right main pulmonary artery. Called/faxed to Dr. Jeremy Suggs at 12:18 p.m. by robb. Dictated by: Dictated on workstation # [id number]
== END ==
LOC: RAD 09:53
PROVIDERS: ATTEND Internal Medicine
DX: J44.1 Chronic obstructive pulmonary disease with (acute) exacerbation (principal); R91.8 Other nonspecific abnormal finding of lung field
CPT/HCPCS: 71260

== ENCOUNTER → 2023-02-15 | Outpatient (CLI) | payer MEDICARE ==
[~2023-02-15] MED LIST changes: -HOLD METFORMIN - RECEIVED CONTRAST 20 ML VIAL IV SCH; -IOHEXOL 350 MG/ML 100 ML (OMNIPAQUE 350) VIAL IV ONE; +LIDOCAINE 2% VISCOUS 15 ML UDC PO ONE; -NS 100 ML (IVPB) BAG IV ONE; +NS IV 1000 ML 1,000 ML IV ONE
== END ==
LOC: CATH 07:24
PROVIDERS: ATTEND Internal Medicine Cardiovascular Disease
DX: Z53.9 Procedure and treatment not carried out, unspecified reason (principal)